=== PATIENT | female | born 1950 | race Caucasian/White ===

== ENCOUNTER 2017-05-21 08:31 | Day surgery (SDC) | payer MEDICARE ==
[2017-05-18 10:14] VITALS: BMI 39.5
[~2017-05-21 08:31] MED LIST: LACTATED RINGERS 1,000 ML IV SCH; LIDOCAINE 1% 20 ML VIAL (10MG/ML) FOR IV START INTRADERMA PRN
[2017-05-21 08:53] VITALS: TEMP 97.5
[2017-05-21] MEDS ORDERED: PROPOFOL 10 MG/ML 20 ML VIAL IV ONE (09:54)
--- NOTE | 2017-05-21 10:30 | P.PCN ---
Date of Procedure: 05/21/17 Preoperative Diagnosis: Postoperative Diagnosis: Procedure(s) Performed: BRIEF HISTORY: Patient is a 67-year-old pleasant white female, scheduled for an elective colonoscopy as a part of screening for colorectal neoplasia. PROCEDURE PERFORMED: Colonoscopy with biopsy and snare polypectomy. PREOPERATIVE DIAGNOSIS: Screening for Colon cancer. IV sedation per Anesthesia. PROCEDURE: After informed consent was obtained, the patient, was brought into the endoscopy unit. IV sedation was administered by Anesthesia under continuous monitoring. Digital rectal examination was normal. Initially the Olympus CF- 160 flexible video colonoscope was then inserted in the rectum, gradually advanced into the cecum without any difficulty. Careful examination was performed as the scope was gradually being withdrawn. Ileocecal valve and the appendiceal orifice were visualized and appeared normal. Prep was excellent. In the base of the cecum there was a 5 mm polyp that was removed by biopsy. He ascending colon there were 2 polyps measuring 1 cm in size both of which were removed by snare polypectomy. Mucosa of the cecum, ascending colon, transverse colon, descending colon, sigmoid colon, and rectum appeared normal. Scattered left-sided diverticulosis seen. Retroflexion was performed in the rectum and no lesions were seen. The patient tolerated the procedure well. IMPRESSION: 5 mm cecal polyp serous was biopsied 1 cm 2 ascending colon polyp status post snare polypectomy Scattered sigmoid diverticulosis. RECOMMENDATIONS: Findings of this examination were discussed with the patient she was advised to follow with the biopsy results. If the biopsy shows a tubular adenoma she can have a repeat colonoscopy in 3-5 years. Implants: Indications for Procedure: Operative Findings: Description of Procedure:
[2017-05-21 11:16] VITALS: RESP 18
[2017-05-21 11:39] VITALS: BP 110/79; PULSE 61
== END 2017-05-21 11:55 | disposition home or self-care (01) ==
LOC: ORWHC2ENDO 08:31
PROVIDERS: ATTEND Internal Medicine Gastroenterology
DX: Z12.11 Encounter for screening for malignant neoplasm of colon (principal); D12.2 Benign neoplasm of ascending colon; D12.0 Benign neoplasm of cecum; K57.30 Diverticulosis of large intestine without perforation or abscess without bleeding; I10 Essential (primary) hypertension; E07.9 Disorder of thyroid, unspecified; E66.01 Morbid (severe) obesity due to excess calories; Z68.39 Body mass index [BMI] 39.0-39.9, adult; Z79.899 Other long term (current) drug therapy
CPT/HCPCS: 88305; 45380; 45385; J2704

== ENCOUNTER → 2019-12-22 | Outpatient (CLI) | payer MEDICARE ==
--- NOTE | 2019-12-22 10:12 | US ---
EXAMINATION TYPE: US thyroid st tissue head/neck DATE OF EXAM: 12/22/2019 COMPARISON: NONE CLINICAL HISTORY: R22.1 left neck nodule. Patient states she never feels her neck, but about a month ago she felt an area in the submandibular region on the left, no tender, no recent infections, no ski n redness. TECHNIQUE/LTS findings: Targeted grayscale and color ultrasound was performed of the patient's palpab le abnormality of the left neck. Normal appearing softy tissue scan of left neck. At area of palp appears to be the patients submandib ular gland along with superficial lymph node measuring 1.2 x 1.2 x 0.5cm. Fatty hilum still in tact. No other abnormalities seen. IMPRESSION: Morphologically normal, nonenlarged lymph node in adjacent submandibular gland are seen s onographically in the patient's area of palpable abnormality.
== END | disposition home or self-care (01) ==
LOC: RADUSWWP 09:29
PROVIDERS: ATTEND Otolaryngology
DX: R22.1 Localized swelling, mass and lump, neck (principal)
CPT/HCPCS: 76536

== ENCOUNTER 2020-04-15 08:43 | Day surgery (SDC) | payer MEDICARE ==
[2020-04-15 09:30] VITALS: TEMP 98.6
[2020-04-15 10:19] VITALS: BP 129/85; PULSE 66; RESP 16
--- NOTE | 2020-04-15 10:34 | US ---
ULTRASOUND GUIDED FNA LEFT NECK LYMPH NODE BIOPSY: CLINICAL HISTORY: 1 cm left neck lymph node FINDINGS: The procedure was explained to the patient. The risks, complications, benefits and alternatives were discussed and any questions were answered. Informed consent was obtained. Patient was placed supin e on the ultrasound table and prepped and draped in the usual sterile fashion. Utilizing a 25 gauge needle, five passes were made into the requested left neck lymph node. Patient was stable throughout the procedure. Pathology is pending. All elements of maximal barrier technique were utilized. IMPRESSION: 1. Successful ultrasound guided FNA neck lymph node biopsy.
== END 2020-04-15 10:30 | disposition home or self-care (01) ==
LOC: RADPROMAIN 08:43
PROVIDERS: ATTEND Otolaryngology
DX: R59.0 Localized enlarged lymph nodes (principal)
CPT/HCPCS: 10005; 38505; 76942; 88173; 88305

== ENCOUNTER 2021-04-22 17:50 | Observation (INO) | payer MEDICARE ==
[2021-04-22] MEDS ORDERED: NITROGLYCERIN OINT 1 INCH/GM PACKET TOPICAL STA (18:13)
[2021-04-22] MEDS ORDERED: ASPIRIN 81 MG PO STA (18:13)
[2021-04-22] MEDS ORDERED: LORazepam 2 MG/ML INJ IV STA (18:14)
--- NOTE | 2021-04-22 18:17 | ED ---
General Adult HPI - General Chief complaint: Chest Pain Stated complaint: chest pain Time Seen by Provider: 04/22/21 17:55 Source: patient, RN notes reviewed, old records reviewed Mode of arrival: wheelchair Limitations: no limitations - History of Present Illness Initial comments: This is a 71-year-old female with a past medical history significant for anxiety and high blood pressure. Patient states she's been under quite a bit of stress lately because her has dementia and has been in a hole and she can go see him every other day. Patient states she started having chest pain yesterday on the left side of her chest. Patient states when she gets the pain she becomes diaphoretic. Patient denies any radiation of the pain she denies any difficulty breathing or shortness of breath. Patient denies any nausea vomiting. Patient denies any abdominal pain. Patient denies any recent fever chills or cough per patient denies any calf tenderness or leg pain. - Related Data Home Medications Medication Instructions Recorded Confirmed ALPRAZolam [Xanax] 0.25 mg PO BID PRN 04/28/17 04/03/20 Levothyroxine Sodium [Synthroid] 250 mcg PO QAM 04/28/17 04/03/20 Venlafaxine HCl [Effexor XR] 75 mg PO QAM 04/28/17 04/15/20 atenoloL [Tenormin] 25 mg PO QAM 04/28/17 04/03/20 lisinopriL [Zestril] 10 mg PO QAM 04/28/17 04/03/20 Allergies Allergy/AdvReac Type Severity Reaction Status Date / Time No Known Allergies Allergy Verified 04/22/21 17:53 Review of Systems ROS Statement: Those systems with pertinent positive or pertinent negative responses have been documented in the HPI. ROS Other: All systems not noted in ROS Statement are negative. Past Medical History Past Medical History: Hypertension, Thyroid Disorder Additional Past Medical History / Comment(s): Recent tx bacterial infection History of Any Multi-Drug Resistant Organisms: ESBL Date of last positivie culture/infection: 11/25/20 MDRO Source:: URINE ESBL Past Surgical History: Cholecystectomy Additional Past Surgical History / Comment(s): COLONOSCOPY Past Anesthesia/Blood Transfusion Reactions: No Reported Reaction Past Psychological History: Anxiety Past Alcohol Use History: None Reported Past Drug Use History: None Reported - Past Family History Mother Family Medical History: Cancer Additional Family Medical History / Comment(s): lung Father Family Medical History: Cancer Additional Family Medical History / Comment(s): pacreas,liver General Exam - General Exam Comments Initial Comments: GENERAL: Patient is well-developed and well-nourished. Patient is nontoxic and well- hydrated and is in mild distress. ENT: Neck is soft and supple. No significant lymphadenopathy is noted. Oropharynx is clear. Moist mucous membranes. Neck has full range of motion without eliciting any pain. EYES: The sclera were anicteric and conjunctiva were pink and moist. Extraocular movements were intact and pupils were equal round and reactive to light. Eyelids were unremarkable. PULMONARY: Unlabored respirations. Good breath sounds bilaterally. No audible rales rhonchi or wheezing was noted. CARDIOVASCULAR: There is a regular rate and rhythm without any murmurs gallops or rubs. ABDOMEN: Soft and nontender with normal bowel sounds. SKIN: Skin is clear with no lesions or rashes and otherwise unremarkable. NEUROLOGIC: Patient is alert and oriented x3. Cranial nerves II through XII are grossly intact. Motor and sensory are also intact. Normal speech, volume and content. Symmetrical smile. MUSCULOSKELETAL: Normal extremities with adequate strength and full range of motion. No lower extremity swelling or edema. No calf tenderness. LYMPHATICS: No significant lymphadenopathy is noted PSYCHIATRIC: Patient seems mildly anxious Limitations: no limitations Course Vital Signs 04/22/21 17:51 Temperature 97.9 F Pulse Rate 82 Respiratory 18 Rate Blood Pressure 169/98 O2 Sat by Pulse 98 Oximetry Medical Decision Making - Medical Decision Making EKG shows sinus rhythm with occasional PAC at 77 bpm MN interval 160 QRS is 74 QT interval 388 QTC is 439. Patient's EKG shows no ST segment elevation or depression. Chest x-ray shows no acute abnormality. I went back into the room patient states she did experience chest pain a couple more times but it wasn't quite as bad as before. I spoke with [facility] hospitalist agreed to admit the patient admitted the patient wrote admitting orders. - Lab Data Result diagrams: 04/22/21 18:22 04/22/21 18:22 Lab Results 04/22/21 04/22/21 04/22/21 Range/Units 18:22 18:22 18:22 WBC 8.9 (3.8-10.6) k/uL RBC 4.95 (3.80-5.40) m/uL Hgb 13.8 (11.4-16.0) gm/dL Hct 42.5 (34.0-46.0) % MCV 85.8 (80.0-100.0) fL MCH 27.8 (25.0-35.0) pg MCHC 32.4 (31.0-37.0) g/dL RDW 14.0 (11.5-15.5) % Plt Count 375 (150-450) k/uL MPV 7.3 Neutrophils % 63 % Lymphocytes % 27 % Monocytes % 5 % Eosinophils % 3 % Basophils % 0 % Neutrophils # 5.5 (1.3-7.7) k/uL Lymphocytes # 2.4 (1.0-4.8) k/uL Monocytes # 0.5 (0-1.0) k/uL Eosinophils # 0.3 (0-0.7) k/uL Basophils # 0.0 (0-0.2) k/uL PT 10.1 (9.0-12.0) sec INR 0.9 (<1.2) APTT 23.0 (22.0-30.0) sec Sodium 140 (137-145) mmol/L Potassium 4.0 (3.5-5.1) mmol/L Chloride 105 (98-107) mmol/L Carbon Dioxide 25 (22-30) mmol/L Anion Gap 10 mmol/L BUN 19 H (7-17) mg/dL Creatinine 0.65 (0.52-1.04) mg/dL Est GFR (CKD-EPI)AfAm >90 (>60 ml/min/1.73 sqM) Est GFR (CKD-EPI)NonAf >90 (>60 ml/min/1.73 sqM) Glucose 110 H (74-99) mg/dL Calcium 10.1 (8.4-10.2) mg/dL Magnesium 1.8 (1.6-2.3) mg/dL Total Bilirubin 0.3 (0.2-1.3) mg/dL AST 27 (14-36) U/L ALT 17 (4-34) U/L Alkaline Phosphatase 151 H (38-126) U/L Troponin I (0.000-0.034) ng/mL Total Protein 7.0 (6.3-8.2) g/dL Albumin 4.1 (3.5-5.0) g/dL Lipase 197 (23-300) U/L 04/22/21 Range/Units 18:22 WBC (3.8-10.6) k/uL RBC (3.80-5.40) m/uL Hgb (11.4-16.0) gm/dL Hct (34.0-46.0) % MCV (80.0-100.0) fL MCH (25.0-35.0) pg MCHC (31.0-37.0) g/dL RDW (11.5-15.5) % Plt Count (150-450) k/uL MPV Neutrophils % % Lymphocytes % % Monocytes % % Eosinophils % % Basophils % % Neutrophils # (1.3-7.7) k/uL Lymphocytes # (1.0-4.8) k/uL Monocytes # (0-1.0) k/uL Eosinophils # (0-0.7) k/uL Basophils # (0-0.2) k/uL PT (9.0-12.0) sec INR (<1.2) APTT (22.0-30.0) sec Sodium (137-145) mmol/L Potassium (3.5-5.1) mmol/L Chloride (98-107) mmol/L Carbon Dioxide (22-30) mmol/L Anion Gap mmol/L BUN (7-17) mg/dL Creatinine (0.52-1.04) mg/dL Est GFR (CKD-EPI)AfAm (>60 ml/min/1.73 sqM) Est GFR (CKD-EPI)NonAf (>60 ml/min/1.73 sqM) Glucose (74-99) mg/dL Calcium (8.4-10.2) mg/dL Magnesium (1.6-2.3) mg/dL Total Bilirubin (0.2-1.3) mg/dL AST (14-36) U/L ALT (4-34) U/L Alkaline Phosphatase (38-126) U/L Troponin I <0.012 (0.000-0.034) ng/mL Total Protein (6.3-8.2) g/dL Albumin (3.5-5.0) g/dL Lipase (23-300) U/L Disposition Clinical Impression: Chest pain Disposition: ADMITTED IP TO THIS HOSP Referrals: Tasia Gonzalez MD [Primary Care Provider] - 1-2 days Time of Disposition: 20:08
[2021-04-22 18:30] LABS: Basophils % (A) 0 %; Eosinophils # (A) 0.3 k/uL (0-0.7); Eosinophils % (A) 3 %; HCT 42.5 % (34.0-46.0); HGB 13.8 gm/dL (11.4-16.0); Lymphocytes # (A) 2.4 k/uL (1.0-4.8); Lymphocytes % (A) 27 %; MCH 27.8 pg (25.0-35.0); MCHC 32.4 g/dL (31.0-37.0); MCV 85.8 fL (80.0-100.0); Mean Platelet Volume 7.3; Monocytes # (A) 0.5 k/uL (0-1.0); Monocytes % (A) 5 %; Neutrophils # (A) 5.5 k/uL (1.3-7.7); Neutrophils % (A) 63 %; Platelet Count 375 k/uL (150-450); RBC 4.95 m/uL (3.80-5.40); WBC 8.9 k/uL (3.8-10.6)
[2021-04-22 18:44] LABS: INR 0.9 (<1.2); Prothrombin Time 10.1 sec (9.0-12.0)
[2021-04-22 18:48] LABS: ALT 17 U/L (4-34); AST 27 U/L (14-36); African American GFR (CKD) >90 (>60 ml/min/1.73 sqM); Albumin 4.1 g/dL (3.5-5.0); Alkaline Phosphatase 151 U/L (38-126); Anion Gap 10 mmol/L; Blood Urea Nitrogen 19 mg/dL (7-17); Calcium 10.1 mg/dL (8.4-10.2); Carbon Dioxide 25 mmol/L (22-30); Chloride 105 mmol/L (98-107); Glucose 110 mg/dL (74-99); Lipase 197 U/L (23-300); Magnesium 1.8 mg/dL (1.6-2.3); Non-African American GFR(CKD) >90 (>60 ml/min/1.73 sqM); Sodium 140 mmol/L (137-145); Total Bilirubin 0.3 mg/dL (0.2-1.3)
--- NOTE | 2021-04-22 19:03 | XR ---
EXAMINATION TYPE: XR chest 2V DATE OF EXAM: 04/22/2021 COMPARISON: 06/17/2013. HISTORY: Chest pain. TECHNIQUE: Frontal and lateral views of the chest are obtained. FINDINGS: There is mild left basilar atelectasis. No significant infiltrate, pleural effusion, or pn eumothorax seen. The cardiac silhouette size is within normal limits. The osseous structures are i ntact. IMPRESSION: No acute cardiopulmonary process.
[2021-04-22] MEDS ORDERED: NITROGLYCERIN SL TABS 0.4 MG TAB SUBLINGUAL PRN (20:09)
[2021-04-23] MEDS: ZOLPIDEM 10 MG TAB PO SCH ×2 (00:19→20:51)
[2021-04-23] MEDS: NITROGLYCERIN OINT 1 INCH/GM PACKET TOPICAL SCH ×4 (00:24→17:10)
[2021-04-23] MEDS: LEVOTHYROXINE 112 MCG TAB PO SCH (05:46)
[2021-04-23] MEDS: LEVOTHYROXINE 100 MCG TAB PO SCH (05:46)
[2021-04-23 08:02] LABS: Glucose,Whole Blood 103 mg/dL (75-99)
[2021-04-23] MEDS ORDERED: AMINOPHYLLINE 500 MG/20 ML VIAL IV PRN (08:47)
[2021-04-23] MEDS ORDERED: REGADENOSON 0.4 MG/5 ML SYRINGE IV PRN (08:47)
[2021-04-23] MEDS ORDERED: CAFFEINE CITRATE 60 MG/3 ML VIAL IV PRN (08:47)
[2021-04-23] MEDS: ASPIRIN 325 MG TAB PO SCH (09:04)
[2021-04-23 10:52] LABS: Chol/HDL Ratio 3.37; LDL Cholesterol,Calculated 101.6 mg/dL (0.0-131.0); VLDL Calculation 14.4 mg/dL (5.00-40.00)
--- NOTE | 2021-04-23 13:00 | P.CRDCN ---
History of Present Illness History of present illness: HISTORY OF PRESENTING ILLNESS This is a pleasant 71-year-old female past medical history significant for hypertension and anxiety. She follows with a mentally impaired teacher at [facility]. We have been asked to see in consultation for chest pain. Patient is seen and examined bedside in no acute distress. Patient states that she's been having left-sided chest pain, that is intermittent. The pain is not sharp she states it just feels uncomfortable. She states it comes and goes, lasts for a couple minutes. The chest pain is located on her left side. It does radiate to her left shoulder blade. The radiation is what concerned her to come to the emergency department. She did have associated diaphoresis and some mild shortness of breath. She denies any palpitations, fatigue, weakness, light headedness, syncope. Aggravating symptoms include palpation to the chest. She denies any injury or heavy lifting to the chest. She states that, sometimes helps relieve the pain. Currently she does not have any chest pain. She denies history of coronary artery disease, PA, stroke, diabetes. She is a nonsmoker. She denies alcohol or illicit drug use. Current home cardiac medications include atenolol 25 mg daily, lisinopril 10 mg daily. DIAGNOSTICS EKG reveals sinus rhythm, heart rate 77, PAC, no significant ST history of abnormalities. No prior EKG to compare. Telemetry tracings indicate sinus mechanism, heart rate 70s to 80s. Chest xray no acute cardiopulmonary process. Laboratory reviewed, troponin negative 3, CBC unremarkable, sodium 140, potassium 4.0, BUN 19, serum creatinine 0.65, magnesium 1.8, triglycerides 72, cholesterol 165, LDL 101, HDL 49 REVIEW OF SYSTEMS At the time of my exam: CONSTITUTIONAL: Denies fever or chills. CARDIOVASCULAR: Positive chest pain, positive diaphoresis, positive mild shortness of breath Denies orthopnea, PND or palpitations. RESPIRATORY: Denies cough. GASTROINTESTINAL: Denies abdominal pain, diarrhea, constipation, nausea or vomiting. MUSCULOSKELETAL: Denies myalgias. NEUROLOGIC: Denies numbness, tingling, headacbe or weakness. ENDOCRINE: Denies fatigue, weight change, polydipsia or polyurina. GENITOURINARY: Denies burning, hematuria or urgency with micturation. HEMATOLOGIC: Denies history of anemia or bleeding. PHYSICAL EXAMINATION Blood pressure blood pressure 120/75 heart rate 72 afebrile and maintaining oxygen saturation on 97% on room air. CONSTITUTIONAL: No apparent distress. HEENT: Head is normocephalic. Pupils are equal, round. Sclerae anicteric. Mucous membranes of the mouth are moist. No JVD. No carotid bruit. CHEST EXAMINATION: Lungs are clear to auscultation. There is chest wall tenderness noted on palpation or with deep breathing. HEART EXAMINATION: Regular rate and rhythm. S1, S2 heard. No murmurs, gallops or rub. ABDOMEN: Soft, nontender. Positive bowel sounds. EXTREMITIES: 2+ peripheral pulses, no lower extremity edema and no calf tenderness. SKIN: intact NEUROLOGIC EXAMINATION: Patient is awake, alert and oriented x3. ASSESSMENT Chest pain, atypical, acute coronary syndrome has been ruled out. History of hypertension History of anxiety PLAN An acute coronary event has been ruled out with no EKG evidence of ischemia and negative cardiac enzymes. Obtain 2D echocardiogram and doppler study to assess cardiac structure and function. Perform Lexiscan stress test to assess for stress induced cardiac ischemia. If abnormal will consider coronary angiography. If stress test is negative and echocardiogram with no acute findings, patient can be discharged from a cardiology perspective Lipid panel ordered Patient should follow-up with her primary mentally impaired teacher at [facility]. Nurse Practitioner note has been reviewed, I agree with a documented findings and plan of care. Patient was seen and examined. Past Medical History Past Medical History: Hypertension, Thyroid Disorder Additional Past Medical History / Comment(s): Recent tx bacterial infection History of Any Multi-Drug Resistant Organisms: ESBL Date of last positivie culture/infection: 11/25/20 MDRO Source:: URINE ESBL Past Surgical History: Cholecystectomy Additional Past Surgical History / Comment(s): COLONOSCOPY Past Anesthesia/Blood Transfusion Reactions: No Reported Reaction Past Psychological History: Anxiety Smoking Status: Never smoker Past Alcohol Use History: None Reported Past Drug Use History: None Reported - Past Family History Mother Family Medical History: Cancer Additional Family Medical History / Comment(s): lung Father Family Medical History: Cancer Additional Family Medical History / Comment(s): pacreas,liver Medications and Allergies Home Medications Medication Instructions Recorded Confirmed Type ALPRAZolam [Xanax] 0.25 mg PO BID PRN 04/28/17 04/22/21 History atenoloL [Tenormin] 25 mg PO DAILY 04/28/17 04/22/21 History lisinopriL [Zestril] 10 mg PO DAILY 04/28/17 04/22/21 History Ascorbic Acid [Vitamin C] 1,000 mg PO PC-LUNCH 04/22/21 04/22/21 History Cholecalciferol [Vitamin D3 (25 150 mcg PO PC-LUNCH 04/22/21 04/22/21 History Mcg = 1000 Iu)] Levothyroxine Sodium [Synthroid] 56 mcg PO AC-BRKFST 04/22/21 04/22/21 History Levothyroxine Sodium [Synthroid] 100 mcg PO AC-BRKFST 04/22/21 04/22/21 History Venlafaxine HCl ER [Effexor Xr] 150 mg PO PC-BRKFST 04/22/21 04/22/21 History Zinc 50 mg PO PC-LUNCH 04/22/21 04/22/21 History Zolpidem Tartrate [Ambien] 10 mg PO HS 04/22/21 04/22/21 History Allergies Allergy/AdvReac Type Severity Reaction Status Date / Time No Known Allergies Allergy Verified 04/22/21 20:17 Physical Exam Vitals: Vital Signs Temp Pulse Pulse Resp BP BP Pulse Ox 04/23/21 07:00 98.3 F 72 16 128/75 97 04/23/21 02:00 98.2 F 79 17 100/66 94 L 04/22/21 22:15 71 16 04/22/21 22:10 98.4 F 71 16 130/79 94 L 04/22/21 21:45 73 16 120/81 97 04/22/21 20:31 70 16 120/76 95 04/22/21 17:51 97.9 F 82 18 169/98 98 Intake and Output 04/22/21 04/23/21 04/23/21 22:59 06:59 14:59 Other: # Voids 1 Weight 111.13 kg Results 04/22/21 18:22 04/22/21 18:22 Cardiac Enzymes 04/22/21 04/22/21 04/22/21 Range/Units 18:22 18:22 20:37 AST 27 (14-36) U/L Troponin I <0.012 <0.012 (0.000-0.034) ng/mL 04/22/21 Range/Units 23:44 AST (14-36) U/L Troponin I <0.012 (0.000-0.034) ng/mL Coagulation 04/22/21 Range/Units 18:22 PT 10.1 (9.0-12.0) sec APTT 23.0 (22.0-30.0) sec CBC 04/22/21 Range/Units 18:22 WBC 8.9 (3.8-10.6) k/uL RBC 4.95 (3.80-5.40) m/uL Hgb 13.8 (11.4-16.0) gm/dL Hct 42.5 (34.0-46.0) % Plt Count 375 (150-450) k/uL Comprehensive Metabolic Panel 04/22/21 Range/Units 18:22 Sodium 140 (137-145) mmol/L Potassium 4.0 (3.5-5.1) mmol/L Chloride 105 (98-107) mmol/L Carbon Dioxide 25 (22-30) mmol/L BUN 19 H (7-17) mg/dL Creatinine 0.65 (0.52-1.04) mg/dL Glucose 110 H (74-99) mg/dL Calcium 10.1 (8.4-10.2) mg/dL AST 27 (14-36) U/L ALT 17 (4-34) U/L Alkaline Phosphatase 151 H (38-126) U/L Total Protein 7.0 (6.3-8.2) g/dL Albumin 4.1 (3.5-5.0) g/dL Current Medications Generic Name Dose Route Start Last Admin Trade Name Freq PRN Reason Stop Dose Admin Aspirin 325 mg 04/23/21 09:00 Aspirin 325 Mg Tab PO DAILY STEFANI Levothyroxine Sodium 56 mcg 04/23/21 06:30 04/23/21 05:46 Levothyroxine 112 Mcg Tab PO 56 mcg DAILY@30 STEFANI Administration Levothyroxine Sodium 100 mcg 04/23/21 06:30 04/23/21 05:46 Levothyroxine 100 Mcg Tab PO 100 mcg DAILY@0630 STEFANI Administration Nitroglycerin 0.4 mg 04/22/21 20:09 Nitroglycerin Sl Tabs 0.4 Mg Tab SUBLINGUAL Q5M PRN Chest Pain Nitroglycerin 1 inch 04/23/21 00:00 04/23/21 05:46 Nitroglycerin Oint 1 Inch/Gm Packet TOPICAL Not Given Q6HR [facility] Zolpidem Tartrate 10 mg 04/22/21 23:30 04/23/21 00:19 Zolpidem 10 Mg Tab PO 10 mg HS [facility] Administration Intake and Output 04/22/21 04/23/21 04/23/21 22:59 06:59 14:59 Other: # Voids 1 Weight 111.13 kg 04/22/21 18:22 04/22/21 18:22
[2021-04-23] MEDS: lisinopriL 10 MG TAB PO SCH (14:16)
[2021-04-23] MEDS: atenoloL 25 MG TAB PO SCH (14:16)
--- NOTE | 2021-04-23 16:59 | ECHOF ---
Referral Reason:Lv function MEASUREMENTS -------- HEIGHT: 165.1 cm WEIGHT: 111.1 kg BP: 128/75 RVIDd: 4.3 cm (< 3.3) IVSd: 1.3 cm (0.6 - 1.1) LVIDd: 2.7 cm (3.9 - 5.3) LVPWd: 1.1 cm (0.6 - 1.1) IVSs: 1.5 cm LVIDs: 1.8 cm LVPWs: 1.5 cm LAESV Index (A-L): 25.42 ml/m Ao Diam: 3.7 cm (2.0 - 3.7) AV Cusp: 2.2 cm (1.5 - 2.6) LA Diam: 3.9 cm (2.7 - 3.8) MV E Adarsh: 0.75 m/s MV DecT: 315 ms MV A Adarsh: 1.13 m/s MV E/A Ratio: 0.67 RAP: 5.00 mmHg RVSP: 22.40 mmHg FINDINGS -------- Sinus rhythm. This was a technically difficult study with suboptimal views. The left ventricular size is normal. There is mild concentric left ventricular hypertrophy. Overa ll left ventricular systolic function is normal with, an EF between 55 - 60 %. The right ventricle is severely enlarged. Normal LA size by volume 22+/-6 ml/m2. The right atrial size is normal. 5.0mg of Lumason was utilized for enhancement of images Interatrial and interventricular septum intact. The aortic valve was not well visualized. There is no evidence of aortic regurgitation. There is no evidence of aortic stenosis. The mitral valve was not well visualized. Mild mitral stenosis , with a MVA of 2.2cm (by PHT) Mild tricuspid regurgitation present. There is no evidence of pulmonary hypertension. The right v entricular systolic pressure, as measured by Doppler, is 22.40mmHg. There is no pulmonic regurgitation present. The aortic root size is normal. IVC Not well visulized. There is no pericardial effusion. CONCLUSIONS -------- 1. The left ventricular size is normal. 2. There is mild concentric left ventricular hypertrophy. 3. Overall left ventricular systolic function is normal with, an EF between 55 - 60 %. 4. The right ventricle is severely enlarged. 5. Mild mitral stenosis. 6. , with a MVA of 2.2cm (by PHT) 7. Mild tricuspid regurgitation present. TECHNICAL PLANNER: Arlen Petty RDCS
[2021-04-23] MEDS: VENLAFAXINE HCL ER 150 MG CAP PO SCH (17:10)
--- NOTE | 2021-04-23 17:21 | P.STRESS ---
- Stress Test Note Stress Test Results/Findings: Exam Performed: NM stress lexiscan cardiolite Exam Date: 04/23/21 Reason for Exam: CHEST PAIN Height: 5 ft 5 in Weight: 111.13 kg Protocol: LEXISCAN Stage: NA Duration of Exercise: 5 MINUTES Resting Heart Rate: 75 Resting Blood Pressure: 130/87 Maximum Achieved Heart Rate: 100 Maximum Achieved Blood Pressure: 133/86 85% PMHR: 128 100% PMHR: 151 METS: NA Technologist Comment: Stress Test Results/Findings: This is a 71-year-old female with history of hypertension being evaluated for symptoms of chest pain and palpitations. Stress data: Baseline EKG showed sinus rhythm with normal LA interval and QRS duration. Blood pressure at rest is 130/87 at pulse rate of 75. A standard dose of Lexiscan was infused. EKGs taken during and after infusion did not reveal any changes of ischemia. Patient did not experience any chest pain. Final impression : #1. Negative Lexiscan stress test #2. Report on the nuclear portion of the stress test to be provided by the radiologist.
[2021-04-23 17:35] LABS: Glucose,Whole Blood 83 mg/dL (75-99)
[2021-04-24] MEDS: NITROGLYCERIN OINT 1 INCH/GM PACKET TOPICAL SCH ×2 (01:25→05:56)
[2021-04-24] MEDS: LEVOTHYROXINE 100 MCG TAB PO SCH (05:51)
[2021-04-24] MEDS: LEVOTHYROXINE 112 MCG TAB PO SCH (05:52)
--- NOTE | 2021-04-24 06:17 | P.HPIM ---
History of Present Illness H&P Date: 04/23/21 Chief Complaint: Chest pain Patient is a 71-year-old female with a known history of hypertension, hypothyroidism, recent ESBL urinary tract infection, anxiety presents to ER with the complaints of chest pain. Patient states that yesterday while she was at home she developed left-sided chest pain associated with sweating, sharp pain radiating to the right arm and tingling sensation. She became very nauseated and was having tingling sensation when she was coming to ER. Denied any compressive vomiting. No headache or dizziness. Patient has been having intermittent chest pains and epigastric discomfort. Denied any fever or chills. No cough or sputum production. Denied any leg swelling. Patient was given Nitropaste while in the ER which seems to relieve her pain. Denied any smoking or premature cardiac disease in the family. EKG showed sinus rhythm with no ST-T wave changes. Chest x-ray showed no acute cardiopulmonary process. Laboratory data showed WBC 8.9 hemoglobin 13.8 and platelets 375, BUN 19 and creatinine 0.65 Troponin 3 negative LDL 101.6 Coronary awareness PCR not detected. lipase level is 197 Review of Systems Constitutional: Patient denies any fever or chills . No generalized weakness or weight loss. Abdomen: Patient denied nausea vomiting and diarrhea and abdominal pain. Cardiovascular: Patient denies any chest pain or short of breath no palpitations. Respiratory: patient denied any cough is from production. No shortness of breath Neurologic: Patient denied any numbness or tingling headache. Musculoskeletal: Patient denies any complaints of joint swelling or deformity. Skin: Negative Psychiatric: Negative Endocrine: No heat or cold intolerance. No recent weight gain. Genitourinary: No dysuria or hematuria. All other 14 point ROS negative except the above Past Medical History Past Medical History: Hypertension, Thyroid Disorder Additional Past Medical History / Comment(s): Recent tx bacterial infection History of Any Multi-Drug Resistant Organisms: ESBL Date of last positivie culture/infection: 11/25/20 MDRO Source:: URINE ESBL Past Surgical History: Cholecystectomy Additional Past Surgical History / Comment(s): COLONOSCOPY Past Anesthesia/Blood Transfusion Reactions: No Reported Reaction Past Psychological History: Anxiety Smoking Status: Never smoker Past Alcohol Use History: None Reported Past Drug Use History: None Reported - Past Family History Mother Family Medical History: Cancer Additional Family Medical History / Comment(s): lung Father Family Medical History: Cancer Additional Family Medical History / Comment(s): pacreas,liver Medications and Allergies Home Medications Medication Instructions Recorded Confirmed Type ALPRAZolam [Xanax] 0.25 mg PO BID PRN 04/28/17 04/22/21 History atenoloL [Tenormin] 25 mg PO DAILY 04/28/17 04/22/21 History lisinopriL [Zestril] 10 mg PO DAILY 04/28/17 04/22/21 History Ascorbic Acid [Vitamin C] 1,000 mg PO PC-LUNCH 04/22/21 04/22/21 History Cholecalciferol [Vitamin D3 (25 150 mcg PO PC-LUNCH 04/22/21 04/22/21 History Mcg = 1000 Iu)] Levothyroxine Sodium [Synthroid] 56 mcg PO AC-BRKT 04/22/21 04/22/21 History Levothyroxine Sodium [Synthroid] 100 mcg PO AC-BRKT 04/22/21 04/22/21 History Venlafaxine HCl ER [Effexor Xr] 150 mg PO PC-BRKFST 04/22/21 04/22/21 History Zinc 50 mg PO PC-LUNCH 04/22/21 04/22/21 History Zolpidem Tartrate [Ambien] 10 mg PO HS 04/22/21 04/22/21 History Allergies Allergy/AdvReac Type Severity Reaction Status Date / Time No Known Allergies Allergy Verified 04/22/21 20:17 Physical Exam Vitals: Vital Signs Temp Pulse Pulse Resp BP BP Pulse Ox 04/23/21 08:00 72 16 04/23/21 07:00 98.3 F 72 16 128/75 97 04/23/21 02:00 98.2 F 79 17 100/66 94 L 04/22/21 22:15 71 16 04/22/21 22:10 98.4 F 71 16 130/79 94 L 04/22/21 21:45 73 16 120/81 97 04/22/21 20:31 70 16 120/76 95 04/22/21 17:51 97.9 F 82 18 169/98 98 Intake and Output 04/22/21 04/23/21 04/23/21 22:59 06:59 14:59 Other: # Voids 1 Weight 111.13 kg PHYSICAL EXAMINATION: Patient is lying in the bed comfortably, no acute distress, awake alert and oriented.. HEENT: Normocephalic. Neck is supple. Pupils reactive. Nostrils clear. Oral cavity is moist. Neck reveals no JVD, carotid bruits, or thyromegaly. CHEST EXAMINATION: Trachea is central. Symmetrical expansion. Lung bhatia clear to auscultation and percussion. CARDIAC: Normal S1, S2 with no gallops. No murmurs ABDOMEN: Soft. Bowel sounds normal. No organomegaly. No abdominal bruits. Extremities: reveal no edema. No clubbing or cyanosis Neurologically awake, alert, oriented x3 with well-coordinated movements. No focal deficits noted Skin: No rash or skin lesions. Psychiatric: Coperative. Nonsuicidal Musculoskeletal: No joint swelling or deformity. Normal range of motion. Results CBC & Chem 7: 04/22/21 18:22 04/22/21 18:22 Labs: Abnormal Lab Results - Last 24 Hours (Table) 04/22/21 04/23/21 Range/Units 18:22 08:01 BUN 19 H (7-17) mg/dL Glucose 110 H (74-99) mg/dL POC Glucose (mg/dL) 103 H (75-99) mg/dL Alkaline Phosphatase 151 H (38-126) U/L Thrombosis Risk Factor Assmnt - DVT/VTE Prophylaxis DVT/VTE Prophylaxis: Pharmacologic Prophylaxis ordered - Choose All That Apply Any of the Below Risk Factors Present?: Yes Each Factor Represents 1 point: Obesity (BMI >25) Other Risk Factors: Yes Each Risk Factor Represents 2 Points: Age 61-74 years Other congenital or acquired thrombophilia - If yes, enter type in comment: No Thrombosis Risk Factor Assessment Total Risk Factor Score: 3 Thrombosis Risk Factor Assessment Level: Moderate Risk Assessment and Plan Assessment: Atypical chest pain with diaphoresis. Ruled out ACS. Hypothyroidism Anxiety Hypertension Morbid obesity BMI 40.8 DVT prophylaxis With subcu Plan: Patient will be continued on telemetry monitoring. Serial EKG and troponin 3 negative. Follow-up lipid panel level. Patient does have atypical chest pain with possible angina-like symptoms. Cardiology was consulted and recommended stress echocardiogram. Continue to follow closely. Continue with home medications. Time with Patient: Greater than 30
[2021-04-24] MEDS: ASPIRIN 325 MG TAB PO SCH (08:13)
[2021-04-24] MEDS: atenoloL 25 MG TAB PO SCH (08:13)
[2021-04-24] MEDS: lisinopriL 10 MG TAB PO SCH (08:13)
[2021-04-24] MEDS: VENLAFAXINE HCL ER 150 MG CAP PO SCH (08:13)
[2021-04-24] MEDS ORDERED: ASPIRIN 81 MG PO SCH (09:15)
[2021-04-24] MEDS ORDERED: NITROGLYCERIN SL TABS 0.4 MG TAB SUBLINGUAL PRN (09:23)
[2021-04-24] MEDS ORDERED: ATORVASTATIN 80 MG TAB PO STA (09:23)
[2021-04-24] MEDS ORDERED: ALPRAZolam 0.5 MG TAB PO PRN (09:23)
[2021-04-24] MEDS ORDERED: ALPRAZolam 0.25 MG TAB PO PRN (09:23)
--- NOTE | 2021-04-24 09:44 | NM ---
EXAMINATION TYPE: NM stress lexiscan cardiolite DATE OF EXAM: 04/23/2021 COMPARISON: NONE HISTORY: 71-year-old female with chest pain TECHNIQUE: After the intravenous administration of 9.25 mCi Tc 99m Sestamibi - Cardiolite resting SP ECT images acquired 45 minutes post injection. The patient received 0.4mg Lexiscan, 26.0 mCi Tc 99m Sestamibi - Stress images obtained [address] injection FINDINGS: Review of stress and rest SPECT images demonstrates a moderate-sized fixed defect along the mid to ap ical inferolateral wall. However, this enlarges on the stress images. Gated analysis shows Limited au gmentation of the inferolateral wall with an estimated left ventricular ejection fraction of 49 %. TID is elevated at 1.33. IMPRESSION: 1. 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 2. In addition, TID is elevated at 1.33. This can be seen in the setting of multivessel balanced samuel cible ischemia. 3. Estimated LVEF of 49%.
[2021-04-24] MEDS: ISOSORBIDE MONONITRATE ER 30 MG TAB.ER.24H PO SCH (10:05)
[2021-04-24 11:12] LABS: African American GFR (CKD) >90 (>60 ml/min/1.73 sqM); Anion Gap 5 mmol/L; Blood Urea Nitrogen 17 mg/dL (7-17); Calcium 9.8 mg/dL (8.4-10.2); Carbon Dioxide 31 mmol/L (22-30); Chloride 104 mmol/L (98-107); Glucose 90 mg/dL (74-99); Non-African American GFR(CKD) 88 (>60 ml/min/1.73 sqM); Potassium 4.7 mmol/L (3.5-5.1); Sodium 140 mmol/L (137-145)
--- NOTE | 2021-04-24 11:18 | ECHOS ---
Stress Test Results/Findings: Exam Performed: NM stress lexiscan cardiolite Exam Date: 04/23/21 Reason for Exam: CHEST PAIN Height: 5 ft 5 in Weight: 111.13 kg Protocol: LEXISCAN Stage: NA Duration of Exercise: 5 MINUTES Resting Heart Rate: 75 Resting Blood Pressure: 130/87 Maximum Achieved Heart Rate: 100 Maximum Achieved Blood Pressure: 133/86 85% PMHR: 128 100% PMHR: 151 METS: NA Technologist Comment: Stress Test Results/Findings: This is a 71-year-old female with history of hypertension being evaluated for symptoms of chest pain and palpitations. Stress data: Baseline EKG showed sinus rhythm with normal NM interval and QRS duration. Blood pressure at rest is 130/87 at pulse rate of 75. A standard dose of Lexiscan was infused. EKGs taken during and after infusion did not reveal any changes of ischemia. Patient did not experience any chest pain. Final impression : #1. Negative Lexiscan stress test #2. Report on the nuclear portion of the stress test to be provided by the radiologist. GUADALUPE
--- NOTE | 2021-04-24 13:27 | P.PN ---
Subjective This is a pleasant 71-year-old female past medical history significant for hypertension and anxiety. She follows with a glove stitcher at [facility]. We have been asked to see in consultation for chest pain. Patient is seen and examined bedside in no acute distress. Patient states that she's been having left-sided chest pain, that is intermittent. The pain is not sharp she states it just feels uncomfortable. She states it comes and goes, lasts for a couple minutes. The chest pain is located on her left side. It does radiate to her left shoulder blade. The radiation is what concerned her to come to the emergency department. She did have associated diaphoresis and some mild shortness of breath. She denies any palpitations, fatigue, weakness, lightheadedness, syncope. Aggravating symptoms include palpation to the chest. She denies any injury or heavy lifting to the chest. She states that, sometimes helps relieve the pain. Currently she does not have any chest pain. She denies history of coronary artery disease, OR, stroke, diabetes. She is a nonsmoker. She denies alcohol or illicit drug use. Current home cardiac medications include atenolol 25 mg daily, lisinopril 10 mg daily. EKG reveals sinus rhythm, heart rate 77, PAC, no significant ST history of abnormalities. No prior EKG to compare.Chest xray no acute cardiopulmonary process. 04/23- echocardiogram revealed EF 55-60%, RV severely enlarged, mild mitral steno sis with an MVA of 2.2 cm, mild tricuspid regurgitation. Lexiscan stress test suggested mild mid to apical inferior lateral wall infarct with inducible devi-infarct ischemia. 04/24/2021: Patient seen and examined at bedside, no acute distress. Denies chest pain, shortness of breath, palpitations. Blood pressure 129/87, heart rate 66, afebrile, maintaining oxygen saturations 99% on room air. Telemetry tracings indicate sinus mechanism heart rate 60s to 80s. Laboratory data reviewed sodium 140, potassium 4.7, BUN 17, serum creatinine 0.71. Patient currently maintained on aspirin 81 mg daily, atenolol 25 mg daily, lisinopril 10 mg daily PHYSICAL EXAMINATION Blood pressure blood pressure 120/75 heart rate 72 afebrile and maintaining oxygen saturation on 97% on room air. CONSTITUTIONAL: No apparent distress. HEENT: Neck Supple CHEST EXAMINATION: Lungs are clear to auscultation. There is chest wall tenderness noted on palpation or with deep breathing. HEART EXAMINATION: Regular rate and rhythm. S1, S2 heard. No murmurs, gallops or rub. ABDOMEN: Soft, nontender. Positive bowel sounds. EXTREMITIES: 2+ peripheral pulses, no lower extremity edema and no calf tenderness. NEUROLOGIC EXAMINATION: Patient is awake, alert and oriented x3. ASSESSMENT Chest pain, atypical, acute coronary syndrome has been ruled out. History of hypertension History of anxiety PLAN Discussed with patient her echocardiogram results and stress test results. Recommend to proceed with cardiac catheterization. Plan for cardiac catheterization with Dr. Covarrubias tomorrow. I have discussed the risks, benefits and alternative therapies for the above- mentioned procedure and for both sedation/analgesia as well as necessary blood product administration, if indicated, as they pertain to this patient. The patient has indicated understanding and acceptance of the risks and procedures discussed. Questions have been answered appropriately and he is agreeable to move forward with the above-stated procedure. NPO after midnight Start Imdur 30 mg daily Further recommendations based on clinical course Nurse Practitioner note has been reviewed, I agree with a documented findings and plan of care. Patient was seen and examined. Objective - Vital Signs Vital signs: Vital Signs Temp 98.0 F 04/24/21 07:00 Pulse 66 04/24/21 07:00 Resp 16 04/24/21 07:00 BP 129/87 04/24/21 07:00 Pulse Ox 99 04/24/21 07:00 Intake & Output 04/23/21 04/24/21 04/24/21 18:59 06:59 18:59 Weight 111.13 kg Other: # Voids 2 1 - Labs CBC & Chem 7: 04/22/21 18:22 04/24/21 10:40 Labs: Abnormal Lab Results - Last 24 Hours (Table) 04/24/21 Range/Units 10:40 Carbon Dioxide 31 H (22-30) mmol/L
--- NOTE | 2021-04-24 14:58 | P.PN ---
Subjective Progress Note Date: 04/24/21 Patient is a 71-year-old female with a known history of hypertension, hypothyroidism, recent ESBL urinary tract infection, anxiety presents to ER with the complaints of chest pain. Patient states that yesterday while she was at home she developed left-sided chest pain associated with sweating, sharp pain radiating to the right arm and tingling sensation. She became very nauseated and was having tingling sensation when she was coming to ER. Denied any compressive vomiting. No headache or dizziness. Patient has been having intermittent chest pains and epigastric discomfort. Denied any fever or chills. No cough or sputum production. Denied any leg swelling. Patient was given Nitropaste while in the ER which seems to relieve her pain. Denied any smoking or premature cardiac disease in the family. EKG showed sinus rhythm with no ST-T wave changes. Chest x-ray showed no acute cardiopulmonary process. Laboratory data showed WBC 8.9 hemoglobin 13.8 and platelets 375, BUN 19 and creatinine 0.65 Troponin 3 negative LDL 101.6 Coronary awareness PCR not detected. lipase level is 197 04/24/2021 Patient is seen and evaluated in follow-up this morning with no acute overnight issues. 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 Patient is denying any chest pain or shortness of breath at this time. Patient is being closely monitored by cardiology as well and planning for cardiac catheterization in the morning. Will repeat a.m. labs. Troponins have been negative. Sodium today is 140 with a potassium of 4.7 and current creatinine is 0.71. Patient will continue with aspirin, atenolol, lisinopril, and is being started on imdur Review of systems: Constitutional: No reports of fatigue, fever, or chills Cardiovascular: No reports of chest pain or palpitations Respiratory: No reports of shortness of breath or cough GI: No reports of nausea, vomiting, or diarrhea : No reports of dysuria or retention Neurovascular: No reports of weakness or numbness All medications have been reviewed Objective - Vital Signs Vital signs: Vital Signs Temp 98.0 F 04/24/21 07:00 Pulse 66 07/01/21 07:00 Resp 16 04/24/21 07:00 BP 129/87 04/24/21 07:00 Pulse Ox 99 04/24/21 07:00 Intake & Output 04/23/21 04/24/21 04/24/21 18:59 06:59 18:59 Weight 111.13 kg Other: # Voids 2 1 - Exam Patient is sitting up in the bed comfortably, no acute distress, awake alert and oriented.. HEENT: Normocephalic. Neck is supple. Pupils reactive. Nostrils clear. Oral cavity is moist. Neck reveals no JVD, carotid bruits, or thyromegaly. CHEST EXAMINATION: Trachea is central. Symmetrical expansion. Lung bhatia clear to auscultation and percussion. CARDIAC: Normal S1, S2 with no gallops. No murmurs ABDOMEN: Soft. Bowel sounds normal. No organomegaly. No abdominal bruits. Extremities: reveal no edema. No clubbing or cyanosis Neurologically awake, alert, oriented x3 with well-coordinated movements. No focal deficits noted Skin: No rash or skin lesions. Psychiatric: Cooperative. Non-suicidal Musculoskeletal: No joint swelling or deformity. Normal range of motion. - Labs CBC & Chem 7: 04/22/21 18:22 04/24/21 10:40 Assessment and Plan Assessment: Atypical chest pain with diaphoresis. Ruled out ACS. Abnormal stress test Hypothyroidism Anxiety Hypertension Morbid obesity BMI 40.8 DVT prophylaxis With subcu Plan: Patient will be continued on telemetry monitoring. Patient underwent Lexiscan stress test showing scintigraphic findings suggest an old mid to apical inferior lateral wall infarct with inducible devi-Infarct ischemia in addition the TID is elevated at 1.33 which can be seen in the setting of multivessel balance inducible ischemia with an estimated LVEF of 49%. Given these findings patient will undergo cardiac catheterization in the morning and will await report. Cardiology following closely. Will repeat a.m. labs and continue to follow closely. Patient will be nothing by mouth at midnight.
[2021-04-24] MEDS: HEPARIN SODIUM,PORCINE/PF 5,000 UNIT/0.5 ML SYRINGE SQ SCH ×2 (15:51→23:29)
[2021-04-24] MEDS: ZOLPIDEM 10 MG TAB PO SCH (20:29)
[2021-04-25] MEDS ORDERED: SODIUM CHLORIDE 0.9% 1,000 ML in EMPTY BAG 1 BAG IV ONE
[2021-04-25 02:08] VITALS: RESP 16
[2021-04-25] MEDS: LEVOTHYROXINE 100 MCG TAB PO SCH (05:57)
[2021-04-25] MEDS: LEVOTHYROXINE 112 MCG TAB PO SCH (05:57)
[2021-04-25 06:28] LABS: African American GFR (CKD) >90 (>60 ml/min/1.73 sqM); Anion Gap 6 mmol/L; Blood Urea Nitrogen 26 mg/dL (7-17); Calcium 9.3 mg/dL (8.4-10.2); Carbon Dioxide 29 mmol/L (22-30); Chloride 105 mmol/L (98-107); Glucose 109 mg/dL (74-99); Non-African American GFR(CKD) 82 (>60 ml/min/1.73 sqM); Potassium 4.6 mmol/L (3.5-5.1); Sodium 140 mmol/L (137-145)
[2021-04-25] MEDS ORDERED: HEPARIN SODIUM,PORCINE 10,000 UNIT in SODIUM CHLORIDE 0.9% 1,000 ML IRRIGATION PRN (07:00)
[2021-04-25] MEDS ORDERED: HEPARIN SODIUM,PORCINE 2,500 UNIT in SODIUM CHLORIDE 0.9% 250 ML IRRIGATION PRN (07:00)
[2021-04-25] MEDS ORDERED: ASPIRIN 325 MG TAB PO STA (07:20)
[2021-04-25] MEDS: atenoloL 25 MG TAB PO SCH (07:28)
[2021-04-25] MEDS: lisinopriL 10 MG TAB PO SCH (07:28)
[2021-04-25] MEDS: VENLAFAXINE HCL ER 150 MG CAP PO SCH (07:29)
[2021-04-25] MEDS: ISOSORBIDE MONONITRATE ER 30 MG TAB.ER.24H PO SCH (07:29)
[2021-04-25] MEDS: HEPARIN SODIUM,PORCINE/PF 5,000 UNIT/0.5 ML SYRINGE SQ SCH (07:35)
[2021-04-25 07:42] LABS: Glucose,Whole Blood 110 mg/dL (75-99)
[2021-04-25] MEDS ORDERED: fentaNYL (PF) 50 MCG/ML 2 ML AMP ONE (08:38)
[2021-04-25] MEDS ORDERED: LIDOCAINE 1% INJ 10MG/ML (20 ML MDV) ONE (08:38)
[2021-04-25] MEDS ORDERED: HEPARIN SODIUM 1,000 UN/ML (10ML VL) ONE (08:38)
[2021-04-25] MEDS ORDERED: VERAPAMIL 2.5 MG/ML 2 ML AMP ONE (08:38)
[2021-04-25] MEDS ORDERED: ASPIRIN 81 MG PO SCH (09:00)
[2021-04-25] MEDS ORDERED: VERAPAMIL SYRINGE (5 MG/10 ML) INTRAARTER ONE ×2 (09:02→09:06)
[2021-04-25] MEDS ORDERED: LIDOCAINE 1% INJ 10MG/ML (20 ML MDV) SQ ONE ×3 (09:02→09:06)
[2021-04-25] MEDS ORDERED: fentaNYL (PF) 50 MCG/ML 2 ML AMP IV ONE (09:02)
[2021-04-25] MEDS ORDERED: MIDAZOLAM 2 MG/2 ML VIAL IV ONE (09:02)
[2021-04-25] MEDS ORDERED: IV FLUID CONTINUATION 1,000 ML IV ONE (09:03)
[2021-04-25] MEDS ORDERED: IOPAMIDOL-370 125ML BTL INJ ONE (09:22)
[2021-04-25] MEDS ORDERED: RX INFO: IV CONTRAST WAS GIVEN 1 EACH MISC MISCELLANE PRN (09:29)
[2021-04-25] MEDS ORDERED: SODIUM CHLORIDE 0.9% 1,000 ML IV SCH (09:30)
--- NOTE | 2021-04-25 09:36 | P.CARDCATH ---
Date of Procedure: 04/25/21 Preoperative Diagnosis: Chest pain and positive stress test Postoperative Diagnosis: Mild coronary artery disease Procedure(s) Performed: Left heart catheterization without left ventriculography Description of Procedure: HISTORY: This is a 71-year-old female with history of hypertension and hypercholesteremia who was admitted to the hospital with complaints of chest pain. Patient had nuclear stress test which was reported as showing possible infarction involving the inferior wall and lateral wall with devi-infarct ischemia. Patient is advised to have cardiac catheterization for definitive diagnosis. CONSENT:I have discussed the risks, benefits and alternative therapies for the above-mentioned procedure and for both sedation/analgesia as well as necessary blood product administration, if indicated, as they pertain to this patient. The patient has indicated understanding and acceptance of the risks and procedures discussed. PROCEDURE: Patient was brought to the lab in a fasting state. Patient was given some IV sedation. The right wrist is infiltrated with lidocaine and right radial artery was entered using Seldinger technique. A 6-Persian catheter was left in place and selective coronary arteriography was performed. Patient tolerated the procedure well. He had been was applied for hemostasis. No immediate complications were noted and patient was transferred to [facility] in a stable condition Conscious Sedation: Versed 1mg Fentanyl 50 g Duration 17minutes HEMODYNAMICS: Aortic pressure is about 100/70. Left ventricular end-diastolic pressure is up to 15. There was no gradient across the aortic valve SELECTIVE CORONARY ARTERIOGRAPHY: . LEFT MAIN: : Normal length and free of occlusive disease THE LEFT ANTERIOR DESCENDING CORONARY ARTERY: . Good caliber vessel and changes of ectasia and mild diffuse plaque in the mid and distal portion. No critical lesions use ice to small diagonal branches THE LEFT CIRCUMFLEX AND IS CORONARY ARTERY: . This is a good caliber vessel giving rise to good-sized OM branch. Free of any significant occlusive disease THE RIGHT CORONARY ARTERY: Good caliber vessel dominant in distribution, giving rise to PDA and PLV branches. Free of occlusive disease LEFT VENTRICULOGRAPHY: Not performed FINAL IMPRESSION: ectatic vessel with mildly intimal plaque in the LAD. No critical lesions. PLAN: continue risk factor modification and medical therapy PROGNOSIS: fair
[2021-04-25 14:16] VITALS: BP 97/58; PULSE 67; TEMP 98.3
--- NOTE | 2021-04-28 09:52 | P.DS ---
Providers Date of admission: 04/22/21 20:12 Expected date of discharge: 04/25/21 Attending physician: Barry Schaeffer Consults: 04/22/21 20:12 Consult Physician Urgent Consulting Provider: [facility] Consult Reason/Comments: Chest pain Do you want consulting provider notified?: Yes Primary care physician: Tasia Gonzalez Hospital Course: Final diagnosis Atypical chest pain with diaphoresis. Ruled out ACS. Abnormal stress test Status post cardiac catheterization Hypothyroidism Anxiety Hypertension Morbid obesity BMI 40.8 DVT prophylaxis Discharge disposition Patient is being discharged in a stable condition with guarded prognosis to . Patient will follow-up with Dr. Tasia Gonzalez in the outpatient setting upon discharge. Patient is to also follow-up with cardiology as needed. Total time taken is greater than 35 minutes. Hospital course Patient is a 71-year-old female with a known history of hypertension, hypothyroidism, recent ESBL urinary tract infection, anxiety presents to ER with the complaints of chest pain. Patient states that yesterday while she was at home she developed left-sided chest pain associated with sweating, sharp pain radiating to the right arm and tingling sensation. She became very nauseated and was having tingling sensation when she was coming to ER. Denied any compressive vomiting. No headache or dizziness. Patient has been having intermittent chest pains and epigastric discomfort. Denied any fever or chills. No cough or sputum production. Denied any leg swelling. Patient was given Nitropaste while in the ER which seems to relieve her pain. Denied any smoking or premature cardiac disease in the family. EKG showed sinus rhythm with no ST-T wave changes. Chest x-ray showed no acute cardiopulmonary process. Laboratory data showed WBC 8.9 hemoglobin 13.8 and platelets 375, BUN 19 and creatinine 0.65 Troponin 3 negative LDL 101.6 Coronary awareness PCR not detected. lipase level is 197 04/24/2021 Patient is seen and evaluated in follow-up this morning with no acute overnight issues. 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 Patient is denying any chest pain or shortness of breath at this time. Patient is being closely monitored by cardiology as well and planning for cardiac catheterization in the morning. Will repeat a.m. labs. Troponins have been negative. Sodium today is 140 with a potassium of 4.7 and current creatinine is 0.71. Patient will continue with aspirin, atenolol, lisinopril, and is being started on imdur 04/25/2021 Patient is seen in follow-up underwent cardiac catheterization which was clean showing ectatic vessel with mildly intimal plaque in the LAD with no critical lesions noted and continue with risk factor modifications and medical therapy per cardiology recommendations. Patient denies any chest pain or shortness of breath. Patient is requesting to go home. Currently no reports of chest pain, shortness of breath, or palpitations. Patient is afebrile. No reports of nausea or vomiting and patient is tolerating diet. Patient will be discharged home today once completing bed rest per protocol after cardiac catheterization. Cardiology recommendations will continue with patient on Imdur and will have outpatient cardiology follow-up. Patient also instructed to follow-up with [facility] care provider upon discharge as well. On exam vital signs are stable. Cardio S1, S2 are muffled. Respiratory system shows diminished breath sounds at the bases with no wheezing or rhonchi noted. Abdomen is soft and nontender. Nervous system shows no focal deficits. Please refer to medication reconciliation sheet for a list of medications. Patient Condition at Discharge: Fair Plan - Discharge Summary New Discharge Prescriptions: New Isosorbide Mononitrate ER [Imdur] 30 mg PO DAILY #30 tab.er.24h Continue ALPRAZolam [Xanax] 0.25 mg PO BID PRN PRN Reason: Anxiety lisinopriL [Zestril] 10 mg PO DAILY atenoloL [Tenormin] 25 mg PO DAILY Zinc 50 mg PO PC-LUNCH Cholecalciferol [Vitamin D3 (25 Mcg = 1000 Iu)] 150 mcg PO PC-LUNCH Zolpidem Tartrate [Ambien] 10 mg PO HS Venlafaxine HCl ER [Effexor XR] 150 mg PO PC-BRKFST Levothyroxine Sodium [Synthroid] 56 mcg PO AC-BRKFST Levothyroxine Sodium [Synthroid] 100 mcg PO AC-BRKFST Ascorbic Acid [Vitamin C] 1,000 mg PO PC-LUNCH Discharge Medication List ALPRAZolam [Xanax] 0.25 mg PO BID PRN 04/28/17 [History] atenoloL [Tenormin] 25 mg PO DAILY 04/28/17 [History] lisinopriL [Zestril] 10 mg PO DAILY 04/28/17 [History] Ascorbic Acid [Vitamin C] 1,000 mg PO PC-LUNCH 04/22/21 [History] Cholecalciferol [Vitamin D3 (25 Mcg = 1000 Iu)] 150 mcg PO PC-LUNCH 04/22/21 [History] Levothyroxine Sodium [Synthroid] 56 mcg PO AC-BRKFST 04/22/21 [History] Levothyroxine Sodium [Synthroid] 100 mcg PO AC-BRKFST 04/22/21 [History] Venlafaxine HCl ER [Effexor XR] 150 mg PO PC-BRKFST 04/22/21 [History] Zinc 50 mg PO PC-LUNCH 04/22/21 [History] Zolpidem Tartrate [Ambien] 10 mg PO HS 04/22/21 [History] Isosorbide Mononitrate ER [Imdur] 30 mg PO DAILY #30 tab.er.24h 04/25/21 [Rx] Follow up Appointment(s)/Referral(s): Tasia Gonzalez MD [Primary Care Provider] - 1-2 days Patient Instructions/Handouts: Angina (DC), Left Heart Catheterization (DC), After Radial Heart Catheterization (GEN) Activity/Diet/Wound Care/Special Instructions: Activity Limited until follow-up Follow-up with cardiology outpatient Follow-up with primary care provider upon discharge Continue heart healthy diet Continue Medications as prescribed Discharge Disposition: HOME SELF-CARE
== END 2021-04-25 15:46 | disposition home or self-care (01) ==
LOC: EC 17:50 → INTOOBSV 20:12 → OBSVTOIN 20:12 → 6NMEDSUR 20:12 → UNDODISIN 04-25 15:46
PROVIDERS: ADMIT Internal Medicine; ATTEND Internal Medicine
PROC: 4A023N7 Measurement of Cardiac Sampling and Pressure, Left Heart, Percutaneous Approach (ICD-10-PCS; principal; 2021-04-25 09:00)
PROC: B2111ZZ Fluoroscopy of Multiple Coronary Arteries using Low Osmolar Contrast (ICD-10-PCS; principal; 2021-04-25 09:00)
DX: R07.89 Other chest pain (principal); Z68.41 Body mass index [BMI] 40.0-44.9, adult; Z16.12 Extended spectrum beta lactamase (ESBL) resistance; R94.39 Abnormal result of other cardiovascular function study; I10 Essential (primary) hypertension; I05.2 Rheumatic mitral stenosis with insufficiency; E78.00 Pure hypercholesterolemia, unspecified; F41.9 Anxiety disorder, unspecified; E03.9 Hypothyroidism, unspecified; R61 Generalized hyperhidrosis; R11.0 Nausea; R20.2 Paresthesia of skin; E66.01 Morbid (severe) obesity due to excess calories; Z20.822 Contact with and (suspected) exposure to COVID-19; Z79.82 Long term (current) use of aspirin; Z79.890 Hormone replacement therapy; Z79.899 Other long term (current) drug therapy; Z87.440 Personal history of urinary (tract) infections; Z90.49 Acquired absence of other specified parts of digestive tract; Z98.890 Other specified postprocedural states; Z80.0 Family history of malignant neoplasm of digestive organs; Z80.1 Family history of malignant neoplasm of trachea, bronchus and lung
CPT/HCPCS: 96372; 96374; 99285; 36415; 93005; 93017; 93458; 80061; 80053; 80048 ×2; 83690; 83735; 84484; 85025; 85610; 85730; 87635; 71046; 78452; G0378 ×4; C8929; C1894; A9500; J2250; J2060; J2001; J3010; J2785; J1644 ×2; Q9950; Q9967; 93306